=== PATIENT | female | born 1945 | race Caucasian/White ===

== ENCOUNTER 2018-11-27 23:01 | Emergency (ER) | payer MEDICARE ==
[~2018-11-27 23:01] MED LIST: Iopamidol 370 76% 100 ML VIAL ONE
[2018-11-27] MEDS ORDERED: Sodium Chloride 0.9% 1,000 ML ONE (23:44)
[2018-11-27] MEDS ORDERED: Prochlorperazine 10 MG/2 ML VIAL ONE (23:44)
[2018-11-27] MEDS ORDERED: Pantoprazole 40 MG VIAL ONE (23:44)
[2018-11-27 23:58] LABS: Bilirubin Negative (Negative); Blood, Urine Trace (Negative); Clarity Clear (Clear); Glucose, Urine (Dipstick) Negative (Negative); Leukocyte Small (Negative); Nitrite Negative (Negative); Protein, Urine (Dipstick) Negative (Neg-Trace); Urobilinogen 0.2 mg/dL (0.2-1.0)
[2018-11-28 00:05] LABS: Specific Gravity, Urine 1.008 (1.002-1.036)
[2018-11-28 00:07] LABS: ALT (SGPT) 8 U/L (8-55); AST (SGOT) 14 U/L (5-34); Albumin 4.8 g/dL (3.4-4.8); Alkaline Phosphatase 75 U/L (40-150); Anion Gap 17 mmol/L (10-20); BUN (Urea Nitrogen) 18 mg/dL (9.8-20.1); Bilirubin, Total 0.5 mg/dL (0.2-1.2); Calc. Creatinine Clearance 0 mL/min (70-130); Calcium 10.2 mg/dL (7.8-10.44); Carbon Dioxide 25 mmol/L (23-31); Chloride 106 mmol/L (98-107); Estimated GFR-MDRD 52; Globulin 2.9 g/dL (2.4-3.5); Glucose 131 mg/dL (83-110); Lipase 36 U/L (8-78); Protein, Total 7.7 g/dL (6.0-8.3); Sodium 144 mmol/L (136-145)
[2018-11-28 00:08] LABS: Bacteria/HPF None Seen HPF (None Seen); Squamous Epithelial 0-3 HPF (0-3)
[2018-11-28] MEDS ORDERED: Ondansetron PF 4 MG/2 ML Vial ONE (01:28)
--- NOTE | 2018-11-28 07:47 | CT ---
PRELIMINARY REPORT/[facility]/EMERGENCY AFTER HOURS PROCEDURE: EXAM: CT Abdomen and Pelvis With Contrast EXAM DATE/TIME: 11/28/2018 12:37 AM CLINICAL HISTORY: 73 years old, female; Pain and signs and symptoms; Abdominal tenderness and bloating and nausea and v omiting; Abdominal pain; Acute; Prior surgery; Surgery date: 6+ months; Surgery type: Chloecystectomy ; Hysterectomy; Partial sigmoid colon 14" removed; Patient HX: N/v/d; Abdominal distention; HX of ms, diverticulitis TECHNIQUE: Imaging protocol: Axial computed tomography images of the abdomen and pelvis with intravenous contras t. Coronal reformatted images were created and reviewed. Radiation optimization: All CT scans at this facility use at least one of these dose optimization techniques: automated exposure control; mA and/ or kV adjustment per patient size (includes targeted exams where dose is matched to clinical indication); or iterative reconstruction. Contrast material: ISOVUE 370; Contrast volume: 90 ml; Contrast route: LEFT AC; COMPARISON: No relevant prior studies available. FINDINGS: Mediastinum: Small hiatal hernia. ABDOMEN: Liver: Unremarkable. Gallbladder and bile ducts: Cholecystectomy. Pancreas: Unremarkable. Spleen: Unremarkable. Adrenals: Unremarkable. Kidneys and ureters: Unremarkable. Stomach and bowel: Rectosigmoid sutures. Fluid-filled stomach. Fluid throughout the small bowel with mild subjective mucosal prominence. Fluid throughout the proximal colon with decompressed distal colo n. No significant surrounding inflammatory changes noted. No evidence of obstruction. Appendix: No evidence of appendicitis. PELVIS: Bladder: Unremarkable. Reproductive: Hysterectomy. ABDOMEN and PELVIS: Intraperitoneal space: No free air. No significant fluid collection. Bones/joints: No acute fracture. No dislocation. Soft tissues: Unremarkable. Vasculature: Unremarkable. Lymph nodes: No enlarged lymph nodes. IMPRESSION: Findings may represent nonspecific gastroenteritis. Thank you for allowing us to participate in the care of your patient. Dictated and Authenticated by: Rainer Gallegos MD 11/28/2018 1:50 AM Central Time ([place] & [place]) FINAL REPORT EMERGENCY AFTER HOURS ABDOMEN AND PELVIC CT SCAN WITH IV CONTRAST: Date: 11/28/18 Time: 0040 hours FINDINGS/IMPRESSION: Air and fluid within the stomach, small bowel with borderline wall thickening, and moderate fluid and some air throughout the colon, nonspecific, but certainly could be consistent with some type of diff use enterocolitis. Surgical suture in the region of the rectum. Small hiatal hernia. Status post chol ecystectomy. No evidence for other significant acute process. Report in agreement with preliminary report given on-call by Silvia. POS: [facility]
== END 2018-11-28 01:37 | disposition home or self-care (01) ==
LOC: MADERS 23:01
DX: K52.9 Noninfective gastroenteritis and colitis, unspecified (principal); I10 Essential (primary) hypertension; Z79.899 Other long term (current) drug therapy
CPT/HCPCS: 74177; 80053; 81003; 81015; 83605; 83690; 87077; 87086; 87186; 96374; 96375; C9113; J0780; J2405; J7050; Q9967